=== PATIENT | female | born 1935 | race Caucasian/White ===

== ENCOUNTER → 2016-10-20 | Outpatient (CLI) | payer MEDICARE ==
[~2016-10-20] MED LIST: EZET10TA3 PO; LEVO100C2; METO25TA35; OLME20TA PO; OMEG300C; OMEP-110 PO; VIT1TABL32
== END | disposition home or self-care (01) ==
LOC: CFH 09:50
PROVIDERS: ATTEND Nurse Practitioner Family
DX: M50.23 Other cervical disc displacement, cervicothoracic region (principal); M47.893 Other spondylosis, cervicothoracic region; M54.81 Occipital neuralgia
CPT/HCPCS: 72141

== ENCOUNTER → 2016-10-20 | Outpatient (CLI) | payer MEDICARE | END | disposition home or self-care (01) | LOC: RAD 11:11 | PROVIDERS: ATTEND Internal Medicine Gastroenterology | DX: Z51.89 Encounter for other specified aftercare (principal); R13.14 Dysphagia, pharyngoesophageal phase; R07.89 Other chest pain | CPT/HCPCS: 74230 ==

== ENCOUNTER → 2017-02-14 | Outpatient (CLI) | payer MEDICARE | END | disposition home or self-care (01) | LOC: CVU 13:35 | PROVIDERS: ATTEND Surgery | DX: I65.23 Occlusion and stenosis of bilateral carotid arteries (principal) | CPT/HCPCS: 93880 ==

== ENCOUNTER → 2017-07-30 | Outpatient (CLI) | payer MEDICARE ==
[~2017-07-30] MED LIST changes: +DEXL60CA2 PO; +DIAZ2TAB3 PO; +DIPH1TAB PO; +EZET10TA18 PO; -EZET10TA3 PO; +LEVO75TA5 PO; +MECL12.52 PO; +METO25TA35 PO; -OLME20TA PO; +OLME20TA19 PO; +OMNIPAQUE 350 MG/ML, 100ML BOTTLE ONE; +ONDA4TAB7 PO; +ZOLP5TAB6 PO
== END ==
LOC: CFH 12:09
PROVIDERS: ATTEND Physician Assistant Surgical
DX: K86.89 Other specified diseases of pancreas (principal); M85.88 Other specified disorders of bone density and structure, other site; Z90.710 Acquired absence of both cervix and uterus; Z90.49 Acquired absence of other specified parts of digestive tract
CPT/HCPCS: 74177; 82565; Q9967

== ENCOUNTER → 2018-01-08 | Outpatient (CLI) | payer MEDICARE ==
[~2018-01-08] MED LIST changes: +OLME20TA17 PO; -OLME20TA19 PO
== END | disposition home or self-care (01) ==
LOC: EDSTATUS 01-03 15:15 → CFH 11:35 → EDSTATUS 13:30
PROVIDERS: ATTEND Internal Medicine Gastroenterology
DX: R93.5 Abnormal findings on diagnostic imaging of other abdominal regions, including retroperitoneum (principal); R10.9 Unspecified abdominal pain; R63.4 Abnormal weight loss
CPT/HCPCS: 74170; Q9967

== ENCOUNTER → 2018-01-25 | Outpatient (CLI) | payer MEDICARE ==
[~2018-01-25] MED LIST changes: -OMNIPAQUE 350 MG/ML, 100ML BOTTLE ONE
== END | disposition home or self-care (01) ==
LOC: CFH 09:47
PROVIDERS: ATTEND Nurse Practitioner Family
DX: G31.9 Degenerative disease of nervous system, unspecified (principal)
CPT/HCPCS: 70551

== ENCOUNTER → 2019-01-27 | Outpatient (CLI) | payer MEDICARE ==
[~2019-01-27] MED LIST changes: +OMNIPAQUE 350 MG/ML, 100ML BOTTLE ONE
== END | disposition home or self-care (01) ==
LOC: CFH 11:20
PROVIDERS: ATTEND Internal Medicine Gastroenterology
DX: K86.89 Other specified diseases of pancreas (principal)
CPT/HCPCS: 74170; 82565; Q9967